=== PATIENT | male | born 1955 | race Caucasian/White ===

== ENCOUNTER 2022-09-06 18:15 | Emergency (ER) | payer BC, SELFPAY ==
--- NOTE | ~2022-09-06 | CT_ITS ---
EXAMINATION: CT ABDOMEN AND PELVIS WITH CONTRAST CLINICAL INFORMATION: Left-sided flank pain COMPARISON: None TECHNIQUE: Multidetector volumetric images were obtained from the superior aspect of the liver through the pubic symphysis following administration 85 mL of Omnipaque 350 intravenous contrast. Sagittal and coronal reformatted images were obtained on the technologist's workstation. Oral contrast: No This CT examination was performed using dose optimization techniques as appropriate, variously including the following: *Automated exposure control *Adjustment of mA and/or kV according to patient size (this includes techniques or standardized protocols for targeted exams where dose is matched to indication/reason for exam; i.e. extremities or head) *Use of iterative reconstruction technique DLP: 784 mGy-cm FINDINGS: LUNG BASES: Mild linear scarring and slight bronchial wall thickening in the medial left lung base. Lung bases otherwise clear. LIVER, GALLBLADDER, AND BILIARY TREE: Right liver lobe is enlarged measuring approximately 22.4 cm in length. Left liver lobe is diminutive. 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 No liver lesion or biliary ductal dilation. The gallbladder contains multiple peripherally calcified gallstones. No gallbladder wall thickening or pericholecystic inflammatory change. PANCREAS: Unremarkable. SPLEEN: Unremarkable. ADRENAL GLANDS: Unremarkable. KIDNEYS AND URETERS: The kidneys contain multiple small low-density benign appearing cysts, a few of which have some small mural calcifications, Bosniak category 1 and 2. No further follow-up imaging recommended. No enhancing renal lesions. No renal calculi or hydronephrosis. Mild symmetric nonspecific perirenal fascial stranding. No perirenal fluid collection. BLADDER: Unremarkable. GASTROINTESTINAL TRACT: Colonic diverticulosis extensively in the descending and sigmoid colon. In the proximal to mid descending colon there is segmental mural thickening with pericolonic inflammatory fat stranding consistent with acute diverticulitis. No extraluminal gas or pericolonic abscess. No additional bowel wall thickening. No dilated bowel loops. Appendix. No free air or ascites. ABDOMINAL WALL: No significant hernia is appreciated. LYMPH NODES: No lymphadenopathy. VASCULAR: Normal caliber abdominal aorta. Mild to moderate vascular calcifications. No abdominal aortic aneurysm. Retroaortic left renal vein noted. PELVIC VISCERA: Unremarkable. OSSEOUS STRUCTURES: No acute fracture or suspicious osseous lesion. Multilevel degenerative disc disease in the lumbar spine most advanced at L1-L2, L2-L3, and L5-S1 with moderate disc height loss. CT/CT abdomen pelvis w IV con IMPRESSION: Findings consistent with acute diverticulitis of the descending colon. No evidence of perforation or abscess.
[2022-09-06 18:41] VITALS: BP 170/98; PULSE 104; RESP 18; TEMP 36.9; O2SAT 97; BMI 33.0
--- NOTE | 2022-09-06 18:42 | ED.ABDPAIN ---
HPI - Abdominal Pain General Chief Complaint: General Medical <Mary Ayers NP - Last Filed: 09/06/22 18:44> Stated Complaint: left sided abd pain <Mary Ayers NP - Last Filed: 09/06/22 18:44> Time Seen by Provider: 09/06/22 21:44 <Mary Ayers NP - Last Filed: 09/06/22 18:44> Source: patient <IRA Dia - Last Filed: 09/06/22 23:53> Mode of arrival: ambulatory <IRA Dia - Last Filed: 09/06/22 23:53> Limitations: no limitations <IRA Dia Last Filed: 09/06/22 23:53> History of Present Illness HPI narrative: This is a 66-year-old male history of diverticulitis, diabetes, asthma presenting to the emergency department with left-sided abdominal pain that started suddenly this morning associated with nausea, vomiting, anorexia. Patient tells me that this feels like his previous episode of diverticulitis. Tells me because of the holiday his diet has been awful. Reports that the pain is sudden, sharp, intermittent in nature and severe. Also reports foul smelling stool. Patient denies fevers, chills, headache, vision changes, chest pain, shortness of breath, difficulties with bowel habits, hematemesis, hematochezia <IRA Dia - Last Filed: 09/06/22 23:53> Related Data Home Medications: Previous Rx's Medication Instructions Recorded ketorolac 10 mg tablet 10 mg PO TID PRN pain 5 days #15 09/06/22 tabs levofloxacin 750 mg tablet 750 mg PO DAILY 7 days #7 tabs 09/06/22 metronidazole 500 mg tablet 500 mg PO BID 7 days #14 tabs 09/06/22 <Mary Ayers NP - Last Filed: 09/06/22 18:44> Allergies/Adverse Reactions: Allergies Allergy/AdvReac Type Severity Reaction Status Date / Time dog dander [DOGS] Allergy Intermediate RUNNY NOSE Unverified 05/26/20 15:35 cat dander [CAT] Allergy Mild WATERY Unverified 05/26/20 15:35 EYES, <Mary Ayers NP - Last Filed: 09/06/22 18:44> Review of Systems Review of Systems Constitutional : No Weight loss, No Fever, No Chills, No Fatigue, No Malaise ENT/Mouth : No sore throat, No Rhinorrhea Eyes: No Eye Pain, No Swelling, No Redness Cardiovascular : No Chest Pain, No SOB, No Dyspnea on Exertion, No Orthopnea, No Edema, No Palpitations Respiratory : No Cough, No Sputum, No Wheezing Gastrointestinal : No Nausea, No Vomiting, No Diarrhea, No Constipation, + abdominal Pain, No Hematochezia, No Melena Genitourinary : No Dysuria, No Urinary Frequency, No Hematuria, Musculoskeletal : No joint pain, No Myalgias, No Joint Swelling, No flank pain Skin : No Skin Lesions, No rash Neuro : No Weakness, No Numbness, No Dizziness, No Headache Psych : No Anxiety/Panic, No Depression All other systems reviewed and are negative <IRA Dia - Last Filed: 09/06/22 23:53> Yes all other systems are reviewed and are negative <IRA Dia - Last Filed: 09/06/22 23:53> COUNT INCLUDES THE [facility] Past Medical History Attestation statement: The following information was validated with the patient. <IRA Dia - Last Filed: 09/06/22 23:53> Source: old records reviewed and nursing notes reviewed <IRA Dia - Last Filed: 09/06/22 23:53> Social History Social History: Social History Advance Directives: No Advance Directives Information Provided: Yes <Mary Ayers NP - Last Filed: 09/06/22 18:44> Physical Exam ED Vital Signs: Vital Signs - 24 hr 09/06/22 18:41 Temperature 98.4 F Pulse Rate 104 H Respiratory Rate 18 Blood Pressure 170/98 H Pulse Oximetry 97 Oxygen Delivery Method Room Air BMI result Body Mass Index 33.0 <Mary Ayers NP - Last Filed: 09/06/22 18:44> Vital Signs - 24 hr 09/06/22 18:41 Temperature 98.4 F Pulse Rate 104 H Respiratory Rate 18 Blood Pressure 170/98 H Pulse Oximetry 97 Oxygen Delivery Method Room Air BMI result Body Mass Index 33.0 VSS <IRA Dia Last Filed: 09/06/22 23:53> Appearance: Alert.? Oriented X3.? No acute distress.? Head: Normocephalic, atraumatic, no step-offs or deformities Eyes: Pupils equal, round and reactive to light.? CVS: Normal heart rate and rhythm.? Pulses normal.? Respiratory: No respiratory distress.? Breath sounds normal.? Abdomen: Soft and + LLQ pain on palpation.? Skin: Skin warm and dry.? Normal skin color.? Normal skin turgor.? Extremities: No lower extremity edema.? No calf ttp. 5/5 strength to bilateral upper and lower extremities Back: No midline tenderness, no C-spine tenderness, full range of motion, no CVA tenderness bilaterally Neuro: Oriented X 3.? No motor deficit.? No sensory deficit. CN 2-12 intact <IRA Dia Last Filed: 09/06/22 23:53> Course Course Course Narrative: This is a rapid medical exam. deferred additional HPI, ROS, PE to primary provider. 66 yo male with history of diverticulitis, DM, asthma here with left sided abdominal pain with waking with nausea/vomiting x1. no diarrhea, fevers, chills. will check labs, UA, testing for flu/covid/rsv. VSS <Mary Ayers NP - Last Filed: 09/06/22 18:44> Reevaluation(s) Reevaluation #1: CBC with leukocytosis of 15.1. Chemistry with no acute electrolyte abnormalities requiring immediate intervention. Lipase elevated 190. However unlikely pancreatitis. CT of the abdomen and pelvis consistent with acute diverticulitis will give metronidazole and Levaquin. Patient requesting food will give him clear liquids to see if he can tolerate it. <IRA Dia Last Filed: 09/06/22 23:53> Time: 23:05 <IRA Dia Last Filed: 09/06/22 23:53> Reevaluation #2: Patient tolerating fluids without difficulty. I offered him hospital admission however patient tells me he would like to be discharged if possible. I will discharge patient home with metronidazole and Levaquin. Educated on black box warning. Will also discharge home with Toradol. Educated on worrisome signs and symptoms will have him follow up with GI. Educated patient on diagnosis and treatment plan, answered all question, patient verbalizes understanding. At this time patient will be discharged home, advised to return with new or worsening symptoms. Educated on worrisome signs and symptoms and when to return. At this time I feel comfortable discharge home. <IRA Dia - Last Filed: 09/06/22 23:53> Time: 23:51 <IRA Dia - Last Filed: 09/06/22 23:53> Medical Decision Making Medical Decision Making [facility] Narrative: 2148 66 year old male presents w/ LLQ pain, nausea, vomiting, anorexia since this am PE LLQ tenderness. No CVA tenderness Concerns for diverticulitis or kidney stones. Unlikely acute abdomen, pancreatitis. Unlikely pylo Plan- labs, ua, imaging. <IRA Dia - Last Filed: 09/06/22 23:53> Lab Data Result Diagrams: : 09/06/22 19:37 09/06/22 19:37 <Mary Ayers NP - Last Filed: 09/06/22 18:44> Labs: Lab Results 09/06/22 09/06/22 09/06/22 Range/Units 19:37 19:37 19:37 WBC 15.1 H (4.8-10.8) X10*3/uL RBC 5.01 (4.60-5.80) X10*6/uL Hgb 16.2 (14.0-18.0) g/dl Hct 47.7 (42.0-52.0) % MCV 95.2 (80.0-98.0) fL MCH 32.3 (27.0-33.0) pg MCHC 34.0 (31.0-36.0) g/dl RDW 13.6 (11.0-16.0) % Plt Count 225 (160-400) X10*3/uL MPV 7.8 L (9.4-12.4) fL Immature Gran % (Auto) 0.4 (0.0-0.4) % Neut % (Auto) 74.3 H (45-73) % Lymph % (Auto) 15.6 L (20-40) % Sebastian % (Auto) 8.4 (2-11) % Eos % (Auto) 1.0 (0-4) % Baso % (Auto) 0.3 (0-2) % Lymph # (Auto) 2.4 (1.2-4.9) X10*3/uL Sebastian # (Auto) 1.3 H (0.1-1.2) X10*3/uL Eos # (Auto) 0.2 (0.0-0.4) X10*3/uL Baso # (Auto) 0.1 (0.0-0.2) X10*3/uL Abs Immat Gran (auto) 0.06 H (0.00-0.03) X10*3/uL Absolute Neuts (auto) 11.2 H (2.0-8.3) x10*3/uL Absolute Nucleated RBC 0.000 (0.0-0.012) X10*3/uL Nucleated RBC % (auto) 0.0 (0.0-0.2) /100WBC Sodium 135 (135-145) mmol/L Potassium 4.2 (3.3-5.1) mmol/L Chloride 94 L (96-108) mmol/L Carbon Dioxide 31 H (22-29) mmol/L Anion Gap 14 (12-20) BUN 11 (9-16) mg/dL Creatinine 0.91 (0.5-1.4) mg/dL Estim Creat Clear Calc 108.2 Estimated GFR > 60 Random Glucose 171 H (60-115) mg/dL Lactic Acid (0.5-2.0) mmol/L Calcium 10.4 H (8.4-10.2) mg/dL Total Bilirubin 1.2 H (0.0-1.0) mg/dL Direct Bilirubin 0.4 (0.0-0.5) mg/dL AST 18 (5-37) U/L ALT 24 (0-40) U/L Alkaline Phosphatase 59 (39-117) U/L Total Protein 7.0 (6.5-8.0) g/dL Albumin 4.6 (3.5-5.0) g/dL Lipase 190 H (8-78) U/L Urine Color Urine Appearance Urine pH (5.0-9.0) Ur Specific Worden (1.005-1.025) Urine Protein (Neg-Trace) mg/dL Urine Glucose (UA) (Negative) mg/dL Urine Ketones (Negative) mg/dL Urine Blood (Negative) Urine Nitrite (Negative) Ur Leukocyte Esterase (Negative) Urine RBC (0-2) /HPF Urine WBC (0-5) /HPF Ur Squamous Epith Cells (0-2) /HPF Urine Bacteria (None Seen) Hyaline Casts (0-2) /LPF Influenza Type A (PCR) NEGATIVE (Negative) Influenza Type B (PCR) NEGATIVE (Negative) RSV RNA Qual (PCR) NEGATIVE (Negative) SARS-CoV-2 RNA (RT-PCR) NEGATIVE (Negative) 09/06/22 09/07/22 Range/Units 19:37 00:09 WBC (4.8-10.8) X10*3/uL RBC (4.60-5.80) X10*6/uL Hgb (14.0-18.0) g/dl Hct (42.0-52.0) % MCV (80.0-98.0) fL MCH (27.0-33.0) pg MCHC (31.0-36.0) g/dl RDW (11.0-16.0) % Plt Count (160-400) X10*3/uL MPV (9.4-12.4) fL Immature Gran % (Auto) (0.0-0.4) % Neut % (Auto) (45-73) % Lymph % (Auto) (20-40) % Sebastian % (Auto) (2-11) % Eos % (Auto) (0-4) % Baso % (Auto) (0-2) % Lymph # (Auto) (1.2-4.9) X10*3/uL Sebastian # (Auto) (0.1-1.2) X10*3/uL Eos # (Auto) (0.0-0.4) X10*3/uL Baso # (Auto) (0.0-0.2) X10*3/uL Abs Immat Gran (auto) (0.00-0.03) X10*3/uL Absolute Neuts (auto) (2.0-8.3) x10*3/uL Absolute Nucleated RBC (0.0-0.012) X10*3/uL Nucleated RBC % (auto) (0.0-0.2) /100WBC Sodium (135-145) mmol/L Potassium (3.3-5.1) mmol/L Chloride (96-108) mmol/L Carbon Dioxide (22-29) mmol/L Anion Gap (12-20) BUN (9-16) mg/dL Creatinine (0.5-1.4) mg/dL Estim Creat Clear Calc Estimated GFR Random Glucose (60-115) mg/dL Lactic Acid 1.8 (0.5-2.0) mmol/L Calcium (8.4-10.2) mg/dL Total Bilirubin (0.0-1.0) mg/dL Direct Bilirubin (0.0-0.5) mg/dL AST (5-37) U/L ALT (0-40) U/L Alkaline Phosphatase (39-117) U/L Total Protein (6.5-8.0) g/dL Albumin (3.5-5.0) g/dL Lipase (8-78) U/L Urine Color Yellow Urine Appearance Clear Urine pH 7.0 (5.0-9.0) Ur Specific Worden 1.010 (1.005-1.025) Urine Protein Negative (Neg-Trace) mg/dL Urine Glucose (UA) 250 H (Negative) mg/dL Urine Ketones Negative (Negative) mg/dL Urine Blood Trace H (Negative) Urine Nitrite Negative (Negative) Ur Leukocyte Esterase Negative (Negative) Urine RBC 0-2 (0-2) /HPF Urine WBC 0-5 (0-5) /HPF Ur Squamous Epith Cells 0-2 (0-2) /HPF Urine Bacteria None Seen (None Seen) Hyaline Casts 0-2 (0-2) /LPF Influenza Type A (PCR) (Negative) Influenza Type B (PCR) (Negative) RSV RNA Qual (PCR) (Negative) SARS-CoV-2 RNA (RT-PCR) (Negative) <Mary Ayers, FRAMER - Last Filed: 09/06/22 18:44> Lab Results 09/06/22 09/06/22 09/06/22 Range/Units 19:37 19:37 19:37 WBC 15.1 H (4.8-10.8) X10*3/uL RBC 5.01 (4.60-5.80) X10*6/uL Hgb 16.2 (14.0-18.0) g/dl Hct 47.7 (42.0-52.0) % MCV 95.2 (80.0-98.0) fL MCH 32.3 (27.0-33.0) pg MCHC 34.0 (31.0-36.0) g/dl RDW 13.6 (11.0-16.0) % Plt Count 225 (160-400) X10*3/uL MPV 7.8 L (9.4-12.4) fL Immature Gran % (Auto) 0.4 (0.0-0.4) % Neut % (Auto) 74.3 H (45-73) % Lymph % (Auto) 15.6 L (20-40) % Sebastian % (Auto) 8.4 (2-11) % Eos % (Auto) 1.0 (0-4) % Baso % (Auto) 0.3 (0-2) % Lymph # (Auto) 2.4 (1.2-4.9) X10*3/uL Sebastian # (Auto) 1.3 H (0.1-1.2) X10*3/uL Eos # (Auto) 0.2 (0.0-0.4) X10*3/uL Baso # (Auto) 0.1 (0.0-0.2) X10*3/uL Abs Immat Gran (auto) 0.06 H (0.00-0.03) X10*3/uL Absolute Neuts (auto) 11.2 H (2.0-8.3) x10*3/uL Absolute Nucleated RBC 0.000 (0.0-0.012) X10*3/uL Nucleated RBC % (auto) 0.0 (0.0-0.2) /100WBC Sodium 135 (135-145) mmol/L Potassium 4.2 (3.3-5.1) mmol/L Chloride 94 L (96-108) mmol/L Carbon Dioxide 31 H (22-29) mmol/L Anion Gap 14 (12-20) BUN 11 (9-16) mg/dL Creatinine 0.91 (0.5-1.4) mg/dL Estim Creat Clear Calc 108.2 Estimated GFR > 60 Random Glucose 171 H (60-115) mg/dL Lactic Acid (0.5-2.0) mmol/L Calcium 10.4 H (8.4-10.2) mg/dL Total Bilirubin 1.2 H (0.0-1.0) mg/dL Direct Bilirubin 0.4 (0.0-0.5) mg/dL AST 18 (5-37) U/L ALT 24 (0-40) U/L Alkaline Phosphatase 59 (39-117) U/L Total Protein 7.0 (6.5-8.0) g/dL Albumin 4.6 (3.5-5.0) g/dL Lipase 190 H (8-78) U/L Urine Color Urine Appearance Urine pH (5.0-9.0) Ur Specific Worden (1.005-1.025) Urine Protein (Neg-Trace) mg/dL Urine Glucose (UA) (Negative) mg/dL Urine Ketones (Negative) mg/dL Urine Blood (Negative) Urine Nitrite (Negative) Ur Leukocyte Esterase (Negative) Urine RBC (0-2) /HPF Urine WBC (0-5) /HPF Ur Squamous Epith Cells (0-2) /HPF Urine Bacteria (None Seen) Hyaline Casts (0-2) /LPF Influenza Type A (PCR) NEGATIVE (Negative) Influenza Type B (PCR) NEGATIVE (Negative) RSV RNA Qual (PCR) NEGATIVE (Negative) SARS-CoV-2 RNA (RT-PCR) NEGATIVE (Negative) 09/06/22 09/07/22 Range/Units 19:37 00:09 WBC (4.8-10.8) X10*3/uL RBC (4.60-5.80) X10*6/uL Hgb (14.0-18.0) g/dl Hct (42.0-52.0) % MCV (80.0-98.0) fL MCH (27.0-33.0) pg MCHC (31.0-36.0) g/dl RDW (11.0-16.0) % Plt Count (160-400) X10*3/uL MPV (9.4-12.4) fL Immature Gran % (Auto) (0.0-0.4) % Neut % (Auto) (45-73) % Lymph % (Auto) (20-40) % Sebastian % (Auto) (2-11) % Eos % (Auto) (0-4) % Baso % (Auto) (0-2) % Lymph # (Auto) (1.2-4.9) X10*3/uL Sebastian # (Auto) (0.1-1.2) X10*3/uL Eos # (Auto) (0.0-0.4) X10*3/uL Baso # (Auto) (0.0-0.2) X10*3/uL Abs Immat Gran (auto) (0.00-0.03) X10*3/uL Absolute Neuts (auto) (2.0-8.3) x10*3/uL Absolute Nucleated RBC (0.0-0.012) X10*3/uL Nucleated RBC % (auto) (0.0-0.2) /100WBC Sodium (135-145) mmol/L Potassium (3.3-5.1) mmol/L Chloride (96-108) mmol/L Carbon Dioxide (22-29) mmol/L Anion Gap (12-20) BUN (9-16) mg/dL Creatinine (0.5-1.4) mg/dL Estim Creat Clear Calc Estimated GFR Random Glucose (60-115) mg/dL Lactic Acid 1.8 (0.5-2.0) mmol/L Calcium (8.4-10.2) mg/dL Total Bilirubin (0.0-1.0) mg/dL Direct Bilirubin (0.0-0.5) mg/dL AST (5-37) U/L ALT (0-40) U/L Alkaline Phosphatase (39-117) U/L Total Protein (6.5-8.0) g/dL Albumin (3.5-5.0) g/dL Lipase (8-78) U/L Urine Color Yellow Urine Appearance Clear Urine pH 7.0 (5.0-9.0) Ur Specific Worden 1.010 (1.005-1.025) Urine Protein Negative (Neg-Trace) mg/dL Urine Glucose (UA) 250 H (Negative) mg/dL Urine Ketones Negative (Negative) mg/dL Urine Blood Trace H (Negative) Urine Nitrite Negative (Negative) Ur Leukocyte Esterase Negative (Negative) Urine RBC 0-2 (0-2) /HPF Urine WBC 0-5 (0-5) /HPF Ur Squamous Epith Cells 0-2 (0-2) /HPF Urine Bacteria None Seen (None Seen) Hyaline Casts 0-2 (0-2) /LPF Influenza Type A (PCR) (Negative) Influenza Type B (PCR) (Negative) RSV RNA Qual (PCR) (Negative) SARS-CoV-2 RNA (RT-PCR) (Negative) <IRA Dia - Last Filed: 09/06/22 23:53> Medications Administered Discontinued Medications Generic Name Dose Route Start Last Admin Trade Name Freq PRN Reason Stop Dose Admin Albuterol Sulfate 2 puff 09/06/22 23:31 09/07/22 00:10 Albuterol Sulfate 90 Mcg 8 Gm Inhaler INHALE 09/06/22 23:32 2 puff ONCE ONE Administration Sodium Chloride 1,000 mls @ 999 mls/hr 09/06/22 23:00 09/07/22 02:30 Ns IV 09/07/22 00:00 Infused .Q1H1M PATRICK Infusion Levofloxacin 500 mg in 100 mls @ 100 mls/hr 09/06/22 23:01 09/07/22 02:30 Levaquin IV 09/07/22 00:00 Infused ONCE ONE Infusion Metronidazole 500 mg in 100 mls @ 100 mls/hr 09/06/22 23:01 09/07/22 01:47 Flagyl IV 09/07/22 00:00 Infused ONCE ONE Infusion Iohexol 100 ml 09/06/22 22:19 09/06/22 22:20 Iohexol 350 Mg/Ml 100 Ml Infus..Btl IV 09/06/22 22:20 85 ml ONCE ONE Administration Ketorolac Tromethamine 30 mg 09/06/22 22:52 09/06/22 23:59 Ketorolac Tromethamine 15 Mg/Ml Vial IVPUSH 09/06/22 22:53 30 mg ONCE ONE Administration Nicotine 14 mg 09/06/22 23:31 09/07/22 00:00 Nicotine 14 Mg Patch.Td24 TRANSDERMA 09/06/22 23:32 14 mg ONCE ONE Administration <Mary Ayers NP - Last Filed: 09/06/22 18:44> Medications Administered Discontinued Medications Generic Name Dose Route Start Last Admin Trade Name Bernadette PRN Reason Stop Dose Admin Albuterol Sulfate 2 puff 09/06/22 23:31 09/07/22 00:10 Albuterol Sulfate 90 Mcg 8 Gm Inhaler INHALE 09/06/22 23:32 2 puff ONCE ONE Administration Sodium Chloride 1,000 mls @ 999 mls/hr 09/06/22 23:00 09/07/22 02:30 Ns IV 09/07/22 00:00 Infused .Q1H1M PATRICK Infusion Levofloxacin 500 mg in 100 mls @ 100 mls/hr 09/06/22 23:01 09/07/22 02:30 Levaquin IV 09/07/22 00:00 Infused ONCE ONE Infusion Metronidazole 500 mg in 100 mls @ 100 mls/hr 09/06/22 23:01 09/07/22 01:47 Flagyl IV 09/07/22 00:00 Infused ONCE ONE Infusion Iohexol 100 ml 09/06/22 22:19 09/06/22 22:20 Iohexol 350 Mg/Ml 100 Ml Infus..Btl IV 09/06/22 22:20 85 ml ONCE ONE Administration Ketorolac Tromethamine 30 mg 09/06/22 22:52 09/06/22 23:59 Ketorolac Tromethamine 15 Mg/Ml Vial IVPUSH 09/06/22 22:53 30 mg ONCE ONE Administration Nicotine 14 mg 09/06/22 23:31 09/07/22 00:00 Nicotine 14 Mg Patch.Td24 TRANSDERMA 09/06/22 23:32 14 mg ONCE ONE Administration <IRA Dia - Last Filed: 09/06/22 23:53> Critical Care Time Critical Care Time Critical Care Time: No <IRA Dia - Last Filed: 09/06/22 23:53> Discharge Plan Discharge Clinical Impression: Diverticulitis <Mary Ayers NP - Last Filed: 09/06/22 18:44> Patient Disposition: Home, Self-Care <Mary Ayers NP - Last Filed: 09/06/22 18:44> Instructions: Diverticulitis (ED), Diverticulitis Diet (ED) <Mary Ayers NP - Last Filed: 09/06/22 18:44> Additional Instructions: Take your medications as prescribed. If you were prescribed antibiotics today, it is important that you take your medication to their entirety, do not skip any doses, do not finish them early. Follow-up with your primary care provider this week. Return to the emergency department with new or worsening symptoms. Such as fevers, chills, chest pain, shortness of breath, nausea, vomiting, dizziness, headache, vision changes, lethargy In case of emergency call 911 Please follow the diverticulitis diet. Try to stick with clear fluids for at least a few days until you are feeling better. Then slowly transition to rice, chicken. Levaquin is an antibiotic that belongs to the clots called fluoroquinolones, this antibiotic class has a black box warning for tendon rupture. The started experiencing pain to any of your tendons please stop the antibiotic immediately and seek medical attention. Please to not exercise or participate in vigorous activities while taking these antibiotics. Printed prescriptions have been giving to you Toradol has been sent to her pharmacy, please do not take this with any anti-inflammatory medicines, ibuprofen or alcohol. Side effects include kidney injury and increased risk for bleeding. <Mary Ayers NP - Last Filed: 09/06/22 18:44> Prescriptions: New metronidazole 500 mg tablet 500 mg PO BID 7 Days Qty: 14 0RF levofloxacin 750 mg tablet 750 mg PO DAILY 7 Days Qty: 7 0RF ketorolac 10 mg tablet 10 mg PO TID PRN (Reason: pain) 5 Days Qty: 15 0RF Rx Instructions: Tolerated IM in the department <Mary Ayers NP - Last Filed: 09/06/22 18:44> Referrals: [facility] [place] G[facility] [Provider Group] - 2 days Jaswinder Kumar PA [Primary Care Provider] - 2 days <Mary Ayers NP - Last Filed: 09/06/22 18:44> Stand Alone Forms: Work/School Release <Mary Ayers NP - Last Filed: 09/06/22 18:44> Interventions: ED Discharge Assessment Last Done: 09/07/22 02:42 <Mary Ayers NP - Last Filed: 09/06/22 18:44> Discharge Date/Time: 09/07/22 02:44 <Mary Ayers NP - Last Filed: 09/06/22 18:44>
[2022-09-06 19:43] LABS: MANUAL DIFF FLAG NO
[2022-09-06 19:46] LABS: Basophils Absolute Auto 0.1 X10*3/uL (0.0-0.2); Basophils Percent Auto 0.3 % (0-2); Eosinophils Absolute Auto 0.2 X10*3/uL (0.0-0.4); Hematocrit 47.7 % (42.0-52.0); Hemoglobin 16.2 g/dl (14.0-18.0); Imm Gran Abs Auto 0.06 X10*3/uL (0.00-0.03); Imm Gran Pct Auto 0.4 % (0.0-0.4); Lymphocytes Absolute Auto 2.4 X10*3/uL (1.2-4.9); Lymphocytes Percent Auto 15.6 % (20-40); Mean Corpuscular Hemoglobin 32.3 pg (27.0-33.0); Mean Corpuscular Volume 95.2 fL (80.0-98.0); Mean Platelet Volume 7.8 fL (9.4-12.4); Monocytes Absolute Auto 1.3 X10*3/uL (0.1-1.2); Monocytes Percent Auto 8.4 % (2-11); Neutrophils Absolute Auto 11.2 x10*3/uL (2.0-8.3); Neutrophils Percent Auto 74.3 % (45-73); Platelet Count 225 X10*3/uL (160-400); Red Blood Count 5.01 X10*6/uL (4.60-5.80); Red Cell Distribution Width 13.6 % (11.0-16.0); White Blood Count 15.1 X10*3/uL (4.8-10.8)
[2022-09-06 19:47] LABS: Appearance Urine Clear; Color Urine Yellow; Glucose Urine UA 250 mg/dL (Negative); Leukocyte Esterase Urine Negative (Negative); Nitrite Urine Negative (Negative); UMIC TRIGGER UACC YES; Urine Blood Trace (Negative); Urine Ketones Negative (Negative); Urine Protein Negative (Neg-Trace)
[2022-09-06 19:52] LABS: Bacteria Urine None Seen (None Seen); Hyaline Casts Urine 0-2 /LPF (0-2); RBC Urine 0-2 /HPF (0-2); Squamous Epithelial Cell Urine 0-2 /HPF (0-2); WBC Urine 0-5 /HPF (0-5)
[2022-09-06 20:01] LABS: Alanine Aminotransferase 24 U/L (0-40); Albumin Level 4.6 g/dL (3.5-5.0); Alkaline Phosphatase 59 U/L (39-117); Anion Gap 14 (12-20); Aspartate Amino Transferase 18 U/L (5-37); Bilirubin Direct 0.4 mg/dL (0.0-0.5); Bilirubin Total 1.2 mg/dL (0.0-1.0); Blood Urea Nitrogen 11 mg/dL (9-16); Calcium 10.4 mg/dL (8.4-10.2); Carbon Dioxide 31 mmol/L (22-29); Chloride 94 mmol/L (96-108); Creatinine Clr Calc Pharmacy 108.2; Estimated Glomerular Filt Rate > 60; Glucose Random 171 mg/dL (60-115); Lipase 190 U/L (8-78); Potassium 4.2 mmol/L (3.3-5.1); Sodium 135 mmol/L (135-145)
[2022-09-06 20:20] LABS: Influenza A PCR NEGATIVE (Negative); Influenza B PCR NEGATIVE (Negative); Resp Syncy Virus RNA Qual PCR NEGATIVE (Negative); SARS COV2 PCR INHOUSE NEGATIVE (Negative)
[2022-09-06] MEDS: iohexoL 350 MG/ML 100 ML INFUS..BTL IV (22:20)
[2022-09-06] MEDS: Ketorolac Tromethamine 15 MG/ML VIAL 30 MG IVPUSH (23:59)
[2022-09-06] MEDS: 0.9 % Sodium Chloride 1,000 ML 999 ML IV (23:59)
[2022-09-07] MEDS: Nicotine 14 MG PATCH.TD24 TRANSDERMA
[2022-09-07] MEDS: metroNIDAZOLE/NS 500 MG/100 ML PIGGYBACK 100 MG IV (00:09)
[2022-09-07] MEDS: Albuterol Sulfate 90 MCG 8 GM INHALER 2 PUFF INHALE (00:10)
[2022-09-07] MEDS: levoFLOXacin/D5W 500 MG/100 ML PIGGYBACK 100 MG IV (00:10)
--- NOTE | 2022-09-07 00:22 | PC.NURSE ---
Pt. resting in bed. Pt reports pain at 7/10. Medicated with toradol per NOV. Blood cultures drawn and ABX hung per NOV. Pt. requested food and per PO challenge was provided with a turkey sandwich and gingerale. Pt. tolerated the food and drinks fine. No abdominal discomfort. Pt. requested pillows. Provided with 2 pillows.
[2022-09-07 00:38] VITALS: BP 126/57; PULSE 85; RESP 18; TEMP 36.9; O2SAT 97
[2022-09-07 00:41] LABS: Lactic Acid 1.8 mmol/L (0.5-2.0)
--- NOTE | 2022-09-07 02:32 | MHC.EDTECH ---
This tech attempted to move pt to the hallway per charge manager Betzy. pt became very angry and stated he will just pull out his iv and go home. pt was not moved to hallway and charge manager was notified.
[2022-09-07 02:33] VITALS: BP 132/65; PULSE 88; RESP 18; O2SAT 97
== END 2022-09-07 02:44 | disposition home or self-care (01) ==
PROVIDERS: Nurse Practitioner Family; Physician Assistant; Emergency Provider Emergency Medicine; PCP Physician Assistant Medical
DX: K57.32 Diverticulitis of large intestine without perforation or abscess without bleeding (principal); R78.81 Bacteremia; B95.8 Unspecified staphylococcus as the cause of diseases classified elsewhere; R10.32 Left lower quadrant pain; E11.9 Type 2 diabetes mellitus without complications; J45.909 Unspecified asthma, uncomplicated; Z20.828 Contact with and (suspected) exposure to other viral communicable diseases
CPT/HCPCS: 0241U; 36415; 74177; 80048; 80076; 81001; 83605; 83690; 85025; 87040; 87147; 87205; 96361; 96374; 96375; 99284; J1885; J1956; Q9967

== ENCOUNTER 2023-06-06 08:06 | Outpatient (AMB) | payer MEDICARE, SELFPAY ==
[2023-06-06 08:13] VITALS: BP 132/74; PULSE 87; TEMP 36.7; O2SAT 96; BMI 32.8
--- NOTE | 2023-06-06 08:13 | AM.OFFWIN_ITS ---
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 Patient states that every year with needles the main twice a year he comes back and has about bronchitis. From last week is experience cough occasional shortness of breath. Denies fevers or chills cough is nonproductive states feels like his bronchitis. PFSH Social History Patient Tobacco Use Status: Current everyday Tobacco user Review of Systems Const All systems reviewed & are unremarkable except as noted in HPI and below Denies chills Resp Reports chest congestion, Reports cough and Denies excessive phlegm production GI Reports no additional complaints Musc Reports no additional complaints Physical Exam Vital Signs: Last Vital Signs Temp 98.0 F 06/06/23 08:13 Pulse 87 06/06/23 08:13 BP 132/74 06/06/23 08:13 Pulse Ox 96 06/06/23 08:13 BMI result Body Mass Index 32.8 Const General: cooperative, no acute distress and alert Orientation/consciousness: patient oriented x3 Limitations: no limitations HEENT Head: Yes normal to inspection Ears: hearing grossly normal bilaterally and external ears normal General nose exam: Normal external nose present Eyes General: appearance normal, both eyes and all related structures Neck Neck: Yes normal visual inspection Chest Chest palpation & inspection: normal inspection of the chest Resp Effort & Inspection: normal respiratory effort, able to speak in complete sentences and no audible wheezes Auscultation: rhonchi Cardio Rate: regular rate Rhythm: regular rhythm GI Inspection: Yes normal to inspection Palpation (GI): Soft to palpation and nontender Skin General skin exam: no rashes or lesions noted Neuro General: patient oriented x3 Psych Appearance: grossly normal Mental Status: mental status grossly normal Speech and movement: Normal speech and movement present Affect: normal affect Attitude: cooperative Thought process: Normal thought process present Thought content: Normal thought content present Assessment & Plan Assessment & Plan (1) Bronchitis: Code(s): J40 - Bronchitis, not specified as acute or chronic Plan: VSS. Exam patient presents alert oriented no acute distress exam notable for rhonchi the left lower base exam is otherwise unremarkable note above. Discussed possibilities of pneumonia with patient however in the absence of fever productive sputum as well as patient's history of chronic bronchitis in this feeling like his usual bout do not feel it reasonable to trial prednisone and albuterol. Patient given strict return precautions if you develop a fever productive cough to return he is aware. Discharge instructions, follow up and treatment are discussed with patient in my usual fashion. Alternatives in treatment are also discussed. The patient will return for worsening symptoms or as needed. Advised that any labs/imaging ordered will be followed up on and contact made if further treatment needed. Counseled that patient's condition may require further evaluation and/or treatment. Symptoms of concern for worsening disorder discussed in detail in my customary manner. Patient does verbalize understanding of the plan, there are no apparent barriers to communication. The patient is given the opportunity to ask questions and have them answered to his/her satisfaction Medications: New prednisone 40 mg (2 x 20 mg) PO DAILY 7 days 14 tabs 0RF albuterol sulfate 90 mcg/actuation 2 puffs inhalation Q6H PRN 8.5 grams 0RF shortness of breath or wheezing albuterol sulfate 2.5 mg (3 mL) inhalation QID PRN 90 mL 0RF shortness of breath or wheezing Patient Instructions: Your seen and evaluated for your cough and chest congestion. This time we believe your suffer from bronchitis who prescribed prednisone and albuterol P 60 directed experiencing no worsening symptoms please present to the emergency department. Coding Level of Care Code New Pt Level 4 (09404) Diagnoses Bronchitis J40
== END 2023-06-06 08:29 | disposition home or self-care (01) ==
PROVIDERS: PCP Physician Assistant Medical; Visit Provider Physician Assistant
DX: J40 Bronchitis, not specified as acute or chronic (principal)
CPT/HCPCS: 99204

== ENCOUNTER 2023-06-08 10:30 | Emergency (ER) | payer MEDICARE, SELFPAY ==
[2023-06-08] VITALS (20 sets, daily range): BP systolic 77–141; BP diastolic 46–100; PULSE 95–148; RESP 18–32; TEMP 35–36.3; O2SAT 78–100; BMI 33.0; BMI 33.2
--- NOTE | 2023-06-08 | ECG_ITS ---
Test Reason : TACHY Blood Pressure : / mmHG Vent. Rate : 136 BPM Atrial Rate : 000 BPM P-R Int : 000 ms QRS Dur : 162 ms QT Int : 386 ms P-R-T Axes : 000 122 264 degrees QTc Int : 580 ms Wide QRS tachycardia Non-specific intra-ventricular conduction block Lateral infarct , age undetermined Abnormal ECG When compared with ECG of 25-SEP-2014 17:41, Wide QRS tachycardia has replaced Sinus rhythm Vent. rate has increased BY 62 BPM Referred By: Cathleen King Electronically Signed By:MARCEL BRISCOE
--- NOTE | 2023-06-08 | ECG_ITS ---
Test Reason : REPEAT Blood Pressure : / mmHG Vent. Rate : 100 BPM Atrial Rate : 100 BPM P-R Int : 232 ms QRS Dur : 146 ms QT Int : 334 ms P-R-T Axes : 078 079 167 degrees QTc Int : 430 ms Sinus rhythm with 1st degree A-V block Non-specific intra-ventricular conduction block ST depression, consider subendocardial injury Lateral leads ST depression, consider subendocardial injury Anterior leads ST elevation in Inferior leads Abnormal ECG When compared with ECG of 08-JUN-2023 11:01, Wide QRS tachycardia is no longer Present Heart rate has decreased ST now depressed in Anterolateral leads ST elevation now present in Inferior leads Referred By: Cathleen King Electronically Signed By:MARCEL BRISCOE
--- NOTE | ~2023-06-08 | XR_ITS ---
EXAMINATION: XR CHEST CLINICAL INFORMATION: Intubation COMPARISON: Previous chest x-ray from earlier the same day TECHNIQUE: Frontal view of the chest was obtained. FINDINGS: New endotracheal tube 6 cm above the cedrick. Stable enlargement of the cardiac silhouette. Interstitial disease most suggestive of pulmonary edema. Differential would include atypical interstitial/viral pneumonia. No pleural effusion or pneumothorax. New pads over the left mid and lower chest. There may be distended bowel below the left hemidiaphragm. Postsurgical changes to the lower cervical spine. XR/XR chest 1V IMPRESSION: Endotracheal tube tip 6 cm above the cerdick. Interstitial disease most suggestive of pulmonary edema. Differential would include an atypical interstitial or viral pneumonia.
--- NOTE | ~2023-06-08 | XR_ITS ---
EXAMINATION: XR CHEST CLINICAL INFORMATION: Reason for Exam sob COMPARISON: Chest radiograph 09/28/2019 TECHNIQUE: One view of the chest FINDINGS: Lines and tubes: EKG leads overlie the patient. Partially imaged cervical fusion hardware. Significant increased interstitial opacities suggesting pulmonary edema or atypical/viral infection. New small right pleural effusion. No pneumothorax. Unchanged cardiomediastinal silhouette. XR/XR chest 1V IMPRESSION: 1. Significant increased interstitial opacities suggesting pulmonary edema or atypical/viral infection. 2. New small right pleural effusion.
--- NOTE | 2023-06-08 10:43 | ECG_ITS ---
Test Reason : REPEAT Blood Pressure : / mmHG Vent. Rate : 133 BPM Atrial Rate : 000 BPM P-R Int : 000 ms QRS Dur : 162 ms QT Int : 406 ms P-R-T Axes : 000 113 261 degrees QTc Int : 604 ms Wide QRS tachycardia Right axis deviation Left bundle branch block Abnormal ECG When compared with ECG of 08-JUN-2023 10:43, Left bundle branch block is now Present Referred By: Cathleen King Electronically Signed By:MARCEL BRISCOE
[2023-06-08] MEDS: Aspirin Enteric Coated 81 MG TABLET.DR PO (10:54)
[2023-06-08] MEDS: Nitroglycerin 2 % Oint 1 GM Packet 1 INCH TRANSDERMA (10:55)
[2023-06-08] MEDS: Furosemide 40 MG/4 ML VIAL IVPUSH (10:55)
[2023-06-08 11:09] LABS: Basophils Absolute Auto 0.1 X10*3/uL (0.0-0.2); Basophils Percent Auto 0.3 % (0-2); Eosinophils Percent Auto 0.2 % (0-4); Hematocrit 52.6 % (42.0-52.0); Hemoglobin 17.5 g/dl (14.0-18.0); Imm Gran Abs Auto 0.11 X10*3/uL (0.00-0.03); Imm Gran Pct Auto 0.6 % (0.0-0.4); Lymphocytes Percent Auto 5.2 % (20-40); MANUAL DIFF FLAG SCAN; Mean Corpuscular HGB Conc 33.3 g/dl (31.0-36.0); Mean Corpuscular Hemoglobin 32.8 pg (27.0-33.0); Mean Corpuscular Volume 98.7 fL (80.0-98.0); Mean Platelet Volume 8.3 fL (9.4-12.4); Monocytes Absolute Auto 0.6 X10*3/uL (0.1-1.2); Monocytes Percent Auto 2.9 % (2-11); Neutrophils Absolute Auto 17.6 x10*3/uL (2.0-8.3); Neutrophils Percent Auto 90.8 % (45-73); Platelet Count 316 X10*3/uL (160-400); Red Blood Count 5.33 X10*6/uL (4.60-5.80); Red Cell Distribution Width 13.5 % (11.0-16.0); SCAN SMEAR FLAG 1; White Blood Count 19.4 X10*3/uL (4.8-10.8)
[2023-06-08 11:14] LABS: D Dimer High Sensitivity 1004 NG/ML
[2023-06-08 11:18] LABS: B Type Natriuretic Peptide 103 pg/mL (<100)
--- NOTE | 2023-06-08 11:21 | PC.NURSE ---
respiratory at bedside for BIPAP
[2023-06-08 11:24] LABS: Troponin-I High Sensitivity 952.8 ng/L (<3.5-35.0)
[2023-06-08 11:26] LABS: Alanine Aminotransferase 61 U/L (0-40); Albumin Level 4.4 g/dL (3.5-5.0); Alkaline Phosphatase 70 U/L (39-117); Anion Gap 27 (12-20); Aspartate Amino Transferase 75 U/L (5-37); Bilirubin Direct 0.6 mg/dL (0.0-0.5); Bilirubin Total 1.5 mg/dL (0.0-1.0); Blood Urea Nitrogen 23 mg/dL (9-16); Calcium 10.1 mg/dL (8.4-10.2); Carbon Dioxide 17 mmol/L (22-29); Chloride 97 mmol/L (96-108); Creatinine Clr Calc Pharmacy 56.1; Estimated Glomerular Filt Rate 40; Glucose Random 667 mg/dL (60-115); Lipase 30 U/L (8-78); Potassium 6.6 mmol/L (3.3-5.1); Sodium 134 mmol/L (135-145); Total Protein 7.4 g/dL (6.5-8.0)
[2023-06-08 11:28] LABS: INTERNATIONAL NORM RATIO 0.9 (0.9-1.1); Prothrombin Time 10.5 SEC (11.1-13.3)
[2023-06-08 11:30] LABS: Partial Thromboplastin Time 39.1 SEC (26.0-36.4)
[2023-06-08] MEDS: Insulin Regular, Human 100 UNIT/ML 3 ML VIAL 10 UNIT IVPUSH (11:30)
[2023-06-08] MEDS: Morphine Sulfate 4 MG/ML CARTRIDGE 1 MG IVPUSH (11:30)
[2023-06-08] MEDS: Albuterol Sulfate (0.083%) 2.5 MG/3 ML VIAL.NEB 5 MG INHALE (11:33)
[2023-06-08] MEDS: Calcium Gluconate/NaCl,Iso-Osm 2 GM/100 ML PLAST..BAG IV (11:33)
[2023-06-08] MEDS: Sodium Zirconium Cyclosilicate 10 GM POWD.PACK PO (11:33)
[2023-06-08 11:34] LABS: SLIDE REVIEW VERIFIED
[2023-06-08] MEDS: Etomidate 20 MG/10 ML VIAL IVPUSH (11:47)
[2023-06-08] MEDS: propofoL 1,000 MG/100 ML VIAL 34.29 MG IVCONT ×2 (11:51→18:23)
[2023-06-08] MEDS: propofoL 200 MG/20 ML VIAL 50 MG IVPUSH ×6 (11:51→14:13)
[2023-06-08 11:59] LABS: Influenza A PCR NEGATIVE (Negative); Influenza B PCR NEGATIVE (Negative); Resp Syncy Virus RNA Qual PCR NEGATIVE (Negative); SARS COV2 PCR INHOUSE NEGATIVE (Negative)
--- NOTE | 2023-06-08 12:00 | ED.GENADULT ---
HPI - General Adult General Chief complaint: Dyspnea Stated complaint: SOB Time Seen by Provider: 06/08/23 10:37 Source: patient, family (Spouse, son) and EMS Mode of arrival: EMS Limitations: no limitations History of Present Illness HPI narrative: 67-year-old male with past medical history significant for asthma and type 2 diabetes, been having upper respiratory symptoms with coughing for the past 4 days was seen at a walk-in clinic prescribed 40mg prednisone for the past 4 days, patient woke up this morning with severe difficulty breathing and chest tightness started since this morning, in the emergency department patient is diaphoretic appear in acute respiratory distress with difficulty breathing and complaining of chest tightness. Related Data Home Medications Medication Instructions Recorded Confirmed albuterol sulfate 2.5 mg/3 mL mg inhalation 06/06/23 (0.083 %) solution for nebulization albuterol sulfate 90 mcg/actuation inhalation 06/06/23 aerosol inhaler amoxicillin 500 mg capsule 500 mg PO TID 06/06/23 esomeprazole magnesium 20 mg 20 mg PO DAILY 06/06/23 capsule,delayed release ibuprofen 800 mg tablet 800 mg PO TID 06/06/23 metformin 850 mg tablet 850 mg PO BID 06/06/23 Previous Rx's Medication Instructions Recorded albuterol sulfate 2.5 mg/3 mL 2.5 mg (3 mL) inhalation QID PRN 06/06/23 (0.083 %) solution for nebulization shortness of breath or wheezing #90 mL albuterol sulfate 90 mcg/actuation 2 puff inhalation Q6H PRN 06/06/23 aerosol inhaler shortness of breath or wheezing #8.5 grams prednisone 20 mg tablet 40 mg (2 x 20 mg) PO DAILY 7 days 06/06/23 #14 tabs Allergies Allergy/AdvReac Type Severity Reaction Status Date / Time dog dander [DOGS] Allergy Intermediate RUNNY NOSE Verified 06/06/23 08:15 cat dander [CAT] Allergy Mild WATERY Verified 06/06/23 08:15 EYES, Review of Systems Review of Systems: All other systems are reviewed and are negative Constitutional: Reports as per HPI and Reports no additional constitutional complaints Eyes: Reports as per HPI and Reports no additional eye complaints Reports system reviewed and no additional complaints, except as documented Cardiovascular: Reports as per HPI and Reports no additional cardiovascular complaints Respiratory: Reports as per HPI and Reports no additional respiratory complaints Gastrointestinal: Reports as per HPI and Reports no additional gastrointestinal complaints Genitourinary: Reports no additional female genitourinary complaints Musculoskeletal: Reports no additional musculoskeletal complaints Skin/Breast: Reports system reviewed and no additional complaints, except as docu Psychiatric: Reports no additional psychiatric complaints Endocrine: Reports no additional endocrine complaints Hematologic/Lymphatic: Reports no additional hematologic/lymphatic complaints Allergic/Immunologic: Reports no additional allergic/immunologic complaints Reports system reviewed and no additional complaints, except as documented and Reports Abnormal speech present [facility] Social History Social History Alcohol intake: current Patient Tobacco Use Status: Current everyday Tobacco user Smoked in Last 30 Days: Yes Use of substances other than those prescribed or required for medical reasons: No Advance Directives: No Advance Directives Information Provided: Yes Physical Exam ED Vital Signs: Vital Signs - 24 hr 06/08/23 10:35 06/08/23 10:55 06/08/23 11:05 Temperature 97.4 F Pulse Rate 138 H 134 H 133 H Respiratory Rate 30 H 27 H Blood Pressure 103/80 111/78 Pulse Oximetry 87 L 93 Oxygen Delivery Method Nasal Cannula Nasal Cannula Oxygen Flow Rate 4 Fraction of Inspired Oxygen 06/08/23 11:36 06/08/23 11:37 06/08/23 12:21 Temperature Pulse Rate 141 H Respiratory Rate 32 H 32 H Blood Pressure Pulse Oximetry Oxygen Delivery Method Oxygen Flow Rate Fraction of Inspired Oxygen 40 06/08/23 12:57 Temperature Pulse Rate 100 Respiratory Rate Blood Pressure 79/53 L Pulse Oximetry Oxygen Delivery Method Oxygen Flow Rate Fraction of Inspired Oxygen BMI result Body Mass Index 33.2 Vital signs have been reviewed and appear to be correct. Blood pressure elevated. Heart rate elevated. Respiratory rate elevated. Temperature normal. Oxygen saturation normal. Appearance: Alert. Oriented X3. in acute distress. Head: Normal external exam. Normocephalic. Atraumatic. No Wilkins signs noted. No raccoon eyes noted Eyes: PERRLA. EOMI. Conjunctiva and sclera normal. Eyelids normal. ENT: TM's Normal. Pharynx normal. Uvula midline. Moist mucous membranes. No trismus noted. No drooling noted. No muffled voice noted. Neck: Normal inspection. Neck supple. FROM. No adenopathy. Thyroid Normal. No meningeal signs. No neck mass noted. CVS: Normal heart rate and rhythm. Heart sound normal. No murmurs noted. Pulses normal throughout. Respiratory: in respiratory distress. Painless inspiration. Breath sounds normal. Diffuse rales bilaterally. No accessory muscle usage noted or decreased air movement noted. Abdomen: Soft and nontender. Bowel sounds normal in all 4 quadrants. No distention noted. No organomegaly noted. No visible injury noted. Back: No CVA tenderness. Full range of motion noted. Skin: Skin warm and dry. Normal skin color. Normal skin turgor. No rashes/lesions/lacerations noted. Extremities: +2 lower extremity edema. Extremities exhibit normal range of motion. Extremities nontender. Neuro: Oriented X 3. Cranial nerve exam: II-XII are grossly intact No motor deficit. No sensory deficit. Reflexes normal. Course Course Course Narrative: 10 ;35 with the patient in the room in acute respiratory distress. 10:50 case was discussed with Dr. Mcdaniel and the EKG was reviewed advised to discuss with [facility]. 10:55 the case discussed with Dr. William (intervention Cardiology on-call at [facility]) patient will be a candidate for C ICU at [facility]. 11:20 the case was discussed with Dr. Abbott C ICU attending at [facility] accepted the patient for transfer. 11:45 patient still complaining of chest pain and difficulty breathing and more of diaphoresis felt intubation will be the safest way to transport the patient to [facility] the option was discussed with the family and the son who also a nurse and patient approved the intubation. 12:25: Ambulance to transport to C ICU. Delayed because patient become hypotensive need Levophed drip. 1305: Repeat EKG showing ST elevation in the inferior leads the case was discussed again with Dr. William who now accepted the patient to the cardiac catheterization. Reevaluation(s) Reevaluation #1: A 67-year-old male presented with 4 days of upper respiratory infection was placed on 4 days course of prednisone with worsening of his symptoms today with difficulty breathing and congestive heart failure. 1. Chest pain/shortness of breath with elevated troponin STEMI versus myocarditis from the viral infection patient had last week, patient received aspirin/heparin drip. 2. CHF patient received Lasix and nitro paste, patient required BiPAP that he did not tolerate and patient was intubated successfully. 3. Hyperglycemia with anion gap, with a concern of CHF IV fluid may cause worsening of patient's symptoms will start with insulin IV and 500cc of ns. 4. Hyperkalemia with EKG changes. Will start the patient on Lokelma, calcium gluconate, albuterol, insulin. 5. Patient dropped his blood pressure after intubation and sedation will gently give IV bolus of normal saline and start on Levophed. 6. Will arrange for critical care transportation. Time: 12:37 Medications Administered Generic Name Dose Route Start Last Admin Trade Name Freq PRN Reason Stop Dose Admin Calcium Gluconate 2 gm in 100 mls @ 50 mls/hr 06/08/23 11:23 06/08/23 11:33 Calcium Gluconate IV 06/08/23 13:22 50 mls/hr ONCE ONE Administration Norepinephrine Bitartrate 8 mg in 250 mls @ 0 mls/hr 06/08/23 12:45 06/08/23 12:57 Levophed IV 0.05 mcg/kg/min .Q0M PATRICK 10.72 mls/hr Administration Protocol Per Protocol Discontinued Medications Generic Name Dose Route Start Last Admin Trade Name Freq PRN Reason Stop Dose Admin Albuterol Sulfate 5 mg 06/08/23 11:23 06/08/23 11:33 Albuterol Sulfate (0.083%) 2.5 Mg/3 Ml Vial.Neb INHALE 06/08/23 11:24 5 mg ONCE ONE Administration Aspirin 81 mg 06/08/23 10:50 06/08/23 10:54 Aspirin Enteric Coated 81 Mg Tablet. PO 06/08/23 10:51 81 mg ONCE ONE Administration Furosemide 40 mg 06/08/23 10:42 06/08/23 10:55 Furosemide 40 Mg/4 Ml Vial IVPUSH 06/08/23 10:43 40 mg ONCE ONE Administration Protocol Insulin Human Regular 10 unit 06/08/23 11:23 06/08/23 11:30 Insulin Regular, Human 100 Unit/Ml 3 Ml Vial IVPUSH 06/08/23 11:24 10 unit ONCE ONE Administration Nitroglycerin 1 inch 06/08/23 10:42 06/08/23 10:55 Nitroglycerin 2 % Oint 1 Gm Packet TRANSDERMA 06/08/23 10:43 1 inch ONCE ONE Administration Sodium Zirconium Cyclosilicate 10 gm 06/08/23 11:23 06/08/23 11:33 Sodium Zirconium Cyclosilicate 10 Gm Powd.Pack PO 06/08/23 11:24 10 gm ONCE ONE Administration Medical Decision Making Differential Diagnosis Differential Diagnoses: The differential diagnosis associated with the presentation includes (ACS, viral myocarditis, wide complex V-tach, hyperkalemia, electrolyte abnormality, severe anemia, CHF, DKA, pneumonia, pneumothorax, pleural effusion.) Admission/Observation Consideration of admission/observation: Escalation of care including admission/observation considered Consult Healthcare Provider Management of the patient was discussed with: Finish Off Operator (Dr. Mcdaniel/ Dr William/ Dr. Abbott.) Lab Data MDM Lab Attestation statement: I reviewed the patient's lab results. 06/08/23 10:56 06/08/23 10:56 Labs: Lab Results 06/08/23 06/08/23 06/08/23 Range/Units 10:51 10:56 11:13 WBC 19.4 H (4.8-10.8) X10*3/uL RBC 5.33 (4.60-5.80) X10*6/uL Hgb 17.5 (14.0-18.0) g/dl Hct 52.6 H (42.0-52.0) % MCV 98.7 H (80.0-98.0) fL MCH 32.8 (27.0-33.0) pg MCHC 33.3 (31.0-36.0) g/dl RDW 13.5 (11.0-16.0) % Plt Count 316 D (160-400) X10*3/uL MPV 8.3 L (9.4-12.4) fL Immature Gran % (Auto) 0.6 H (0.0-0.4) % Neut % (Auto) 90.8 H (45-73) % Lymph % (Auto) 5.2 L (20-40) % [place] % (Auto) 2.9 (2-11) % Eos % (Auto) 0.2 (0-4) % Baso % (Auto) 0.3 (0-2) % Lymph # (Auto) 1.0 L (1.2-4.9) X10*3/uL [place] # (Auto) 0.6 (0.1-1.2) X10*3/uL Eos # (Auto) 0.0 (0.0-0.4) X10*3/uL Baso # (Auto) 0.1 (0.0-0.2) X10*3/uL Abs Immat Gran (auto) 0.11 H (0.00-0.03) X10*3/uL Absolute Neuts (auto) 17.6 H (2.0-8.3) x10*3/uL Absolute Nucleated RBC 0.000 (0.0-0.012) X10*3/uL Nucleated RBC % (auto) 0.0 (0.0-0.2) /100WBC Smear Tech's Comments VERIFIED PT 10.5 L (11.1-13.3) SEC INR 0.9 (0.9-1.1) APTT 39.1 H (26.0-36.4) SEC D-Dimer High Sensitivty 1004 NG/ML Sodium 134 L (135-145) mmol/L Potassium 6.6 H* D (3.3-5.1) mmol/L Chloride 97 (96-108) mmol/L Carbon Dioxide 17 L (22-29) mmol/L Anion Gap 27 H (12-20) BUN 23 H (9-16) mg/dL Creatinine 1.73 H (0.5-1.4) mg/dL Estim Creat Clear Calc 56.1 Estimated GFR 40 POC Glucose (60-115) mg/dL Random Glucose 667 H* (60-115) mg/dL Lactic Acid 9.0 H* (0.5-2.0) mmol/L Calcium 10.1 (8.4-10.2) mg/dL Total Bilirubin 1.5 H (0.0-1.0) mg/dL Direct Bilirubin 0.6 H (0.0-0.5) mg/dL AST 75 H (5-37) U/L ALT 61 H (0-40) U/L Alkaline Phosphatase 70 (39-117) U/L Troponin I High Sens 952.8 H* (<3.5-35.0) ng/L B-Natriuretic Peptide 103 H (<100) pg/mL Total Protein 7.4 (6.5-8.0) g/dL Albumin 4.4 (3.5-5.0) g/dL Lipase 30 (8-78) U/L Urine Color Urine Appearance Urine pH (5.0-9.0) Ur Specific [place] (1.005-1.025) Urine Protein (Neg-Trace) mg/dL Urine Glucose (UA) (Negative) mg/dL Urine Ketones (Negative) mg/dL Urine Blood (Negative) Urine Nitrite (Negative) Ur Leukocyte Esterase (Negative) Urine RBC (0-2) /HPF Urine WBC (0-5) /HPF Ur Squamous Epith Cells (0-2) /HPF Urine Bacteria (None Seen) Hyaline Casts (0-2) /LPF Influenza Type A (PCR) NEGATIVE (Negative) Influenza Type B (PCR) NEGATIVE (Negative) RSV RNA Qual (PCR) NEGATIVE (Negative) SARS-CoV-2 RNA (RT-PCR) NEGATIVE (Negative) 06/08/23 06/08/23 Range/Units 12:16 12:22 WBC (4.8-10.8) X10*3/uL RBC (4.60-5.80) X10*6/uL Hgb (14.0-18.0) g/dl Hct (42.0-52.0) % MCV (80.0-98.0) fL MCH (27.0-33.0) pg MCHC (31.0-36.0) g/dl RDW (11.0-16.0) % Plt Count (160-400) X10*3/uL MPV (9.4-12.4) fL Immature Gran % (Auto) (0.0-0.4) % Neut % (Auto) (45-73) % Lymph % (Auto) (20-40) % [place] % (Auto) (2-11) % Eos % (Auto) (0-4) % Baso % (Auto) (0-2) % Lymph # (Auto) (1.2-4.9) X10*3/uL [place] # (Auto) (0.1-1.2) X10*3/uL Eos # (Auto) (0.0-0.4) X10*3/uL Baso # (Auto) (0.0-0.2) X10*3/uL Abs Immat Gran (auto) (0.00-0.03) X10*3/uL Absolute Neuts (auto) (2.0-8.3) x10*3/uL Absolute Nucleated RBC (0.0-0.012) X10*3/uL Nucleated RBC % (auto) (0.0-0.2) /100WBC Smear Tech's Comments PT (11.1-13.3) SEC INR (0.9-1.1) APTT (26.0-36.4) SEC D-Dimer High Sensitivty NG/ML Sodium (135-145) mmol/L Potassium (3.3-5.1) mmol/L Chloride (96-108) mmol/L Carbon Dioxide (22-29) mmol/L Anion Gap (12-20) BUN (9-16) mg/dL Creatinine (0.5-1.4) mg/dL Estim Creat Clear Calc Estimated GFR POC Glucose 481 H* (60-115) mg/dL Random Glucose (60-115) mg/dL Lactic Acid (0.5-2.0) mmol/L Calcium (8.4-10.2) mg/dL Total Bilirubin (0.0-1.0) mg/dL Direct Bilirubin (0.0-0.5) mg/dL AST (5-37) U/L ALT (0-40) U/L Alkaline Phosphatase (39-117) U/L Troponin I High Sens (<3.5-35.0) ng/L B-Natriuretic Peptide (<100) pg/mL Total Protein (6.5-8.0) g/dL Albumin (3.5-5.0) g/dL Lipase (8-78) U/L Urine Color Yellow Urine Appearance Clear Urine pH 5.0 (5.0-9.0) Ur Specific [place] 1.020 (1.005-1.025) Urine Protein 100 (2+) H (Neg-Trace) mg/dL Urine Glucose (UA) >=1000 H (Negative) mg/dL Urine Ketones Negative (Negative) mg/dL Urine Blood Negative (Negative) Urine Nitrite Negative (Negative) Ur Leukocyte Esterase Negative (Negative) Urine RBC 0-2 (0-2) /HPF Urine WBC 0-5 (0-5) /HPF Ur Squamous Epith Cells 3-5 (0-2) /HPF Urine Bacteria None Seen (None Seen) Hyaline Casts 0-2 (0-2) /LPF Influenza Type A (PCR) (Negative) Influenza Type B (PCR) (Negative) RSV RNA Qual (PCR) (Negative) SARS-CoV-2 RNA (RT-PCR) (Negative) Independent Interpretation I performed an independent interpretation of an: EKG (Wide complex tachycardia at 133, diffuse abnormal ST-T segments.) and Plain X-Ray (Chest: Interstitial lung edema.) Radiology Impression Discussion of test interpretation with radiology: I have reviewed the radiologist's reading. Chronic Conditions Patient?s care impacted by: Diabetes Critical Care Time Critical Care Time Critical Care Time: Yes Total Critical Care Time: 80 Attestation: I spent 80 minutes providing critical care service to the patient, this including time spent at the bedside to evaluate the patient, reassess the patient, monitoring vital signs, review labs, and radiographic studies, counseling the patient/family, discussing the case with consultants, disposition the patient. Discharge Plan Discharge Clinical Impression: Non-ST elevated myocardial infarction (non-STEMI), Congestive heart failure, DKA, type 2, Acute hyperkalemia [facility] Transfer Details: CICU at [facility] Prescriptions: No Action amoxicillin 500 mg capsule 500 mg PO TID esomeprazole magnesium 20 mg capsule,delayed release(DR/EC) 20 mg PO DAILY albuterol sulfate 90 mcg/actuation HFA aerosol inhaler inhalation ibuprofen 800 mg tablet 800 mg PO TID metformin 850 mg tablet 850 mg PO BID albuterol sulfate 2.5 mg /3 mL (0.083 %) solution for nebulization inhalation prednisone 20 mg tablet 40 mg PO DAILY 7 Days Qty: 14 0RF albuterol sulfate 90 mcg/actuation HFA aerosol inhaler 2 puff inhalation Q6H PRN (Reason: shortness of breath or wheezing) Qty: 8.5 0RF albuterol sulfate 2.5 mg /3 mL (0.083 %) solution for nebulization 2.5 mg inhalation QID PRN (Reason: shortness of breath or wheezing) Qty: 90 0RF
[2023-06-08] MEDS: 0.9 % Sodium Chloride 500 ML IV (12:05)
[2023-06-08] MEDS: propofoL 200 MG/20 ML VIAL 100 MG IVPUSH (12:05)
[2023-06-08] MEDS: fentaNYL citrate/PF 100 MCG/2 ML VIAL 25 MCG IVPUSH ×3 (12:08→13:54)
[2023-06-08 12:27] LABS: Glucose, Whole Blood 481 mg/dL (60-115)
[2023-06-08 12:31] LABS: Appearance Urine Clear; Color Urine Yellow; Glucose Urine UA >=1000 mg/dL (Negative); Leukocyte Esterase Urine Negative (Negative); Nitrite Urine Negative (Negative); UMIC TRIGGER UACC YES; Urine Blood Negative (Negative); Urine Ketones Negative (Negative); Urine Protein 100 (2+) mg/dL (Neg-Trace)
--- NOTE | 2023-06-08 12:36 | MHC.EDTECH ---
Addendum entered by Marily Guo 06/08/23 13:00: CALLED [facility] AND SPOKE TO [facility], THEY ARE ABLE TO TRANSPORT PT TO [facility] [place]. ETA 1315. CALLED [facility] TO CANCEL THEIR TRANSPORT, SPOKE TO [facility]. Original Note: [facility] ARRIVED AND DID NOT FEEL COMFORTABLE TRANSPORTING PT. CALLED [facility] TRANSPORT AT 1236. SPOKE TO [facility]. SHE SAID ETA WILL BE IN 3 HRS. BOOKED AT 1240.
[2023-06-08 12:45] LABS: Bacteria Urine None Seen (None Seen); Hyaline Casts Urine 0-2 /LPF (0-2); RBC Urine 0-2 /HPF (0-2); WBC Urine 0-5 /HPF (0-5)
[2023-06-08] MEDS: Norepinephrine Bitartrate/D5W 8 MG/250 ML PLAST..BAG 10.72 MG IV (12:57)
[2023-06-08 13:00] LABS: Reflex Lactate? Lactic Acid Added
[2023-06-08] MEDS: Heparin Sodium,Porcine/1/2NS 25,000 UNIT/250 ML IV.SOLN 10 UNIT IVCONT (13:13)
--- NOTE | 2023-06-08 13:14 | PC.NURSE ---
Addendum entered by Ashley Rutledge 06/08/23 13:18: 1147 20mg Etomidate IVP at 1147, HR 137, RR 18 1150 MD King intubated with 17.5 tube, 23 at lip 1151 50mg propofol bolus IVP VO MD King at bedside, positive color change with respiratory at bedside 1152 VS: HR 134, BP 141/99, RR 18, 97% 1157 propofol gtt started at 50mcg/kg/min d/t pt increased restlessness, BP 122/84, HR 146, 99%, 20 RR 1158 50mg propofol IVP bolus, VO MD King at bedside 1203 xray at bedside top confirm tube placement, MD at bedside, confirms tube placement, positive breath sounds bilaterally. pt continues to be restless, breathing over tube, poor airway protection 1205 100mg propofol IVP, VO by MD King at bedside for increased agitation and restlessness VS: BP107/69, HR 119, 100%, RR18 1206 116/69, HR 119, 100%, RR20 1208 VO 25mcg fentanyl IVP given for restlessness, 16 F temp sensing lester cath placed with 10cc in balloon. securement device placed to left thigh, good output. OG tube placed and connected to suction. 1236 BP soft 98/67, VO 500cc NS IV, POC 481 1243 pt opening eyes, increased restlessness, attempting to pull at tubes. 25mcg fentanyl IVP and 50mg propofol IV bolus VO by MD King at bedside 1249 noticeable EKG changes on bedside monitor, ekg obtained BP remains soft despite 500cc bolus, Earl at bedside, at this time unable to take pt to [facility] d/t acuity of care plan to start norepi for BP 79/53, VO to transfuse thru large bore PIV (18 L A/C) 1257 norepi started at 0.05mcg/kg/min, dose rate 10.71ml/hr 1304 pt opening eyes and lifting arms, restless. VO at bedside 50 propofol IVP heparin gtt started per NOV at 10 ml/hr (8.749 units/kg/hr) 1309 pt placed in soft of restraints d/t risk of pulls out tubes 1325 norepi gtt increased to 0.07mcg/kg/min for BP 84/56, HR 967, 94%, RR17 1331 POC 391 family at beside, aware of plan of care, plan to transport pt to [facility] CCU awaiting transport at this time Original Note: pt BIBA from home, c/o SOB, dx with bronchitis on at urgent care. pt diaphoretic , cool and clammy, tachy at 130bpm, on 6l NC at 93%. baseline on RA. MD at bedside, ekg obtained. second IV in place. transdermal nitro applied 1050, asa given. pt reported some relief. pt placed on BIPAP. family at bedside able to provide history. pt becoming increasingly restless, worsening chest pain. verbal order by MD to give 1mg morphine IVP. little affect, pt continues to be restless, VSS. MD remains at bedside, plans to intubate pt. 20 Etomidate given at 1147,
[2023-06-08 13:35] LABS: Glucose, Whole Blood 391 mg/dL (60-115)
--- NOTE | 2023-06-08 14:12 | PC.NURSE ---
[facility]
--- NOTE | 2023-06-08 14:18 | PC.NURSE ---
pt transported via [facility] to [facility]
--- NOTE | 2023-06-08 14:27 | PC.NURSE ---
1345 [facility] arrival at [facility] [place] pt VS: 99/69, HR 95, 95% , 20RR Levophed running at 0.07 mcg/kg/min through an 18G in LAC Propofol infusing 50mcg/kg/min through 20G in RAC Heparin infusing 10ml/hr through 20 LAC 1352 pt waking up prior to transfer onto EMS stretcher - 50mg Propofol VO given IVP per MD King 1413 pts eyes opening, pulling against soft restraints, 50mg VO given IVP per MD King. pt now on stretcher, sedated. [place] [facility] [place]
== END 2023-06-08 16:26 | disposition short-term general hospital (02) ==
PROVIDERS: Emergency Provider Emergency Medicine
DX: I21.4 Non-ST elevation (NSTEMI) myocardial infarction (principal); I50.9 Heart failure, unspecified; E11.10 Type 2 diabetes mellitus with ketoacidosis without coma; E87.5 Hyperkalemia; R06.02 Shortness of breath; I95.9 Hypotension, unspecified; Z20.822 Contact with and (suspected) exposure to COVID-19; Z20.828 Contact with and (suspected) exposure to other viral communicable diseases; F17.200 Nicotine dependence, unspecified, uncomplicated
CPT/HCPCS: 0241U; 31500; 36415; 71045; 80048; 80076; 81001; 82947; 83605; 83690; 83880; 84484; 85025; 85379; 85610; 85730; 87040; 93005; 94002; 94640; 96361; 96365; 96366; 96367; 96374; 96375; 96376; 99285; J0613; J1643; J1940; J2270; J3010